=== PATIENT | male | born 1975 | race Caucasian/White ===

== ENCOUNTER 2016-09-30 17:50 | Emergency (ER) | payer OTHER ==
[2016-09-30 18:00] VITALS: TEMP 97.9
[2016-09-30] MEDS ORDERED: ONDANSETRON 4 MG/2 ML VIAL IVP ONE (18:07)
[2016-09-30] MEDS ORDERED: fentaNYL 100 MCG/2 ML INJ IVP ONE (18:07)
[2016-09-30] MEDS ORDERED: NS 1,000 ML IV ONE ×2 (18:07→19:26)
--- NOTE | 2016-09-30 18:14 | EDPHY ---
H & P Time Seen by Provider: 09/30/16 18:01 HPI/ROS: CHIEF COMPLAINT: Right flank pain, vomiting HISTORY OF PRESENT ILLNESS: 40-year-old male presents to the emergency department with abrupt onset of right flank pain that began at 4:00 p.m. today. The patient has a history of kidney stones and he feels that this is very similar with pain in the right flank radiating into the right groin and testicle area. He had a kidney stone 1 year ago and was able to pass this on his own. Prior to that it had been at least 7 or 8 years ago since his last kidney stone. He has never had lithotripsy or required any stenting. He states that he has been nauseous secondary to the pain is vomited twice. No diarrhea. No fevers or chills. He has urinary being normally. He denies dysuria, urgency or frequency. No gross hematuria per patient. REVIEW OF SYSTEMS: Constitutional: No fever, no chills. Eyes: No double or blurry vision. ENT: No sore throat. Respiratory: No cough, no shortness of breath. Cardiac: No chest pain. Gastrointestinal: Abdominal pain as above. Vomiting. No diarrhea. Genitourinary: No dysuria. Musculoskeletal: Right flank pain as above. No neck pain. Skin: No rashes. Neurological: No headache. Past Medical/Surgical History: Kidney stones Social History: Single and lives in [place] Smoking Status: Never smoked Physical Exam: General Appearance: Alert, no distress. 36.6, 123/75 Eyes: Pupils equal and round. Extraocular motions are all intact. ENT: Mouth: Mucous membranes dry appearing. Respiratory: No wheezing, rhonchi, or rales, lungs are clear to auscultation. Cardiovascular: Regular rate and rhythm. Gastrointestinal: Abdomen is soft and nontender, no masses, no rebound or guarding, bowel sounds normal. Positive CVA tenderness on the right, none on the left. Neurological: Alert and oriented x 3, cranial nerves II through XII grossly intact Skin: Warm and dry, no rashes. Musculoskeletal: Nontender to palpate along the cervical, thoracic or lumbar spine. Neck is supple. Extremities: Full range of motion and no peripheral edema. Psychiatric: Patient is oriented X 3, there is no agitation. Constitutional: Initial Vital Signs Temperature (C) 36.6 C 09/30/16 17:51 Heart Rate 77 09/30/16 17:51 Respiratory Rate 18 09/30/16 17:51 Blood Pressure 123/75 H 09/30/16 17:51 O2 Sat (%) 95 09/30/16 17:51 O2 Delivery Mode Room Air Allergies/Adverse Reactions: No Known Allergies Allergy (Unverified 09/30/16 18:00) Home Medications: Medication Instructions Recorded ETODOLAC 09/30/16 Tamsulosin HCl [Flomax] 0.4 mg PO DAILY #10 cap 09/30/16 oxyCODONE/APAP 5/325 [Percocet 1 - 2 tab PO Q4-6PRN PRN #15 tab 09/30/16 5/325] Medical Decision Making - Diagnostics Imaging Results: Imaging Impressions Abdomen/Pelvis Ultrasound 09/30/16 18:09 Impression: 1. Right kidney lower pole 1 cm infundibulum/calyceal calculus with mild right hydronephrosis. 2. No left hydronephrosis or left shadowing calculi. 3. Bladder is empty. Findings and recommendations discussed with emergency department physician insurance account assistant, Berkley Frank PA-C at 1849 hours on September. Final report concurs with initial preliminary interpretation. Renal ultrasound reveals 1 cm distal ureteral calculi. Mild hydronephrosis noted. This was reported to me by Dr. Trent. Imaging: Discussed imaging studies w/ senior software engineering manager Radiologist ED Course/Re-evaluation: 40-year-old male presents to the emergency department with right flank pain. The patient has a history of kidney stones. To avoid radiation exposure, renal ultrasound was ordered which revealed a 1 cm distal right ureteral calculi with mild hydronephrosis. The patient was initially given fentanyl and Zofran. He was then given Toradol 30 mg IV given his normal creatinine of 1.0. Urinalysis reveals large blood without signs of infection The patient continued to have pain and therefore was given 0.5 mg of IV Dilaudid. He received IV normal saline. Patient was given Flomax 0.4 mg p.o.. The patient is comfortable being discharged home. He was given a urine strainer and urology referral. He was instructed to return if he developed difficulty urinating, recurring flank pain, fever, or if he felt worse in any way. Differential Diagnosis: Including but not limited to kidney stone, urinary tract infection, pyelonephritis, urinary retention - Data Points Laboratory Results: Laboratory Results 09/30/16 18:10 09/30/16 18:10 09/30/16 09/30/16 09/30/16 18:10 18:10 18:10 WBC 11.53 10^3/uL H 10^3/uL (3.80-9.50) RBC 5.13 10^6/uL 10^6/uL (4.40-6.38) Hgb 15.3 g/dL g/dL (13.7-17.5) Hct 44.1 % % (40.0-51.0) MCV 86.0 fL fL (81.5-99.8) MCH 29.8 pg pg (27.9-34.1) MCHC 34.7 g/dL g/dL (32.4-36.7) RDW 13.2 % % (11.5-15.2) Plt Count 327 10^3/uL 10^3/uL (150-400) MPV 9.1 fL fL (8.7-11.7) Neut % (Auto) 70.6 % % (39.3-74.2) Lymph % (Auto) 19.8 % % (15.0-45.0) [place] % (Auto) 6.7 % % (4.5-13.0) Eos % (Auto) 1.6 % % (0.6-7.6) Baso % (Auto) 0.9 % % (0.3-1.7) Nucleat RBC Rel Count 0.0 % % (0.0-0.2) Absolute Neuts (auto) 8.14 10^3/uL H 10^3/uL (1.70-6.50) Absolute Lymphs (auto) 2.28 10^3/uL 10^3/uL (1.00-3.00) Absolute Monos (auto) 0.77 10^3/uL 10^3/uL (0.30-0.80) Absolute Eos (auto) 0.19 10^3/uL 10^3/uL (0.03-0.40) Absolute Basos (auto) 0.10 10^3/uL 10^3/uL (0.02-0.10) Absolute Nucleated RBC 0.00 10^3/uL 10^3/uL (0-0.01) Immature Gran % 0.4 % % (0.0-1.1) Immature Gran # 0.05 10^3/uL 10^3/uL (0.00-0.10) Sodium 140 mEq/L mEq/L (134-144) Potassium 4.0 mEq/L mEq/L (3.5-5.2) Chloride 107 mEq/L mEq/L (97-110) Carbon Dioxide 20 mEq/l L mEq/l (22-31) Anion Gap 13 mEq/L mEq/L (8-16) BUN 13 mg/dL mg/dL (7-23) Creatinine 1.0 mg/dL mg/dL (0.7-1.3) Estimated GFR > 60 Glucose 106 mg/dL H mg/dL (70-100) Calcium 9.6 mg/dL mg/dL (8.5-10.4) Urine Color YELLOW Urine Appearance HAZY Urine pH 6.0 (5.0-7.5) Ur Specific [place] 1.023 (1.002-1.030) Urine Protein 1+ H (NEGATIVE) Urine Ketones NEGATIVE (NEGATIVE) Urine Blood 3+ H (NEGATIVE) Urine Nitrate NEGATIVE (NEGATIVE) Urine Bilirubin NEGATIVE (NEGATIVE) Urine Urobilinogen NEGATIVE EU EU (0.2-1.0) Ur Leukocyte Esterase NEGATIVE (NEGATIVE) Urine RBC 50-182 /hpf H /hpf (0-3) Urine WBC 1-3 /hpf /hpf (0-3) Ur Epithelial Cells TRACE /lpf /lpf (NONE-1+) Hyaline Casts 1-5 /lpf /lpf (0-1) Urine Mucus 2+ /lpf H /lpf (NONE-1+) Urine Glucose NEGATIVE (NEGATIVE) Medications Given: Discontinued Medications Fentanyl (Sublimaze) 50 mcg IVP EDNOW ONE Stop: 09/30/16 18:08 Last Admin: 09/30/16 18:33 Dose: 50 mcg Hydromorphone HCl (Dilaudid) 0.5 mg IVP EDNOW ONE Stop: 09/30/16 19:18 Last Admin: 09/30/16 19:18 Dose: 0.5 mg Sodium Chloride (Ns) 1,000 mls @ 0 mls/hr IV ONCE ONE PRN Reason: Wide Open Stop: 09/30/16 18:08 Last Admin: 09/30/16 18:26 Dose: 1,000 mls Sodium Chloride (Ns) 1,000 mls @ 0 mls/hr IV ONCE ONE PRN Reason: Wide Open Stop: 09/30/16 19:27 Last Admin: 09/30/16 19:29 Dose: 1,000 mls Ketorolac Tromethamine (Toradol) 30 mg IVP EDNOW ONE Stop: 09/30/16 18:48 Last Admin: 09/30/16 19:05 Dose: 30 mg Ondansetron HCl (Zofran) 4 mg IVP EDNOW ONE Stop: 09/30/16 18:08 Last Admin: 09/30/16 18:28 Dose: 4 mg Oxycodone/Acetaminophen (Percocet 5/325mg Prepack#4) 1 btl TAKEHOME EDNOW ONE Stop: 09/30/16 20:01 Last Admin: 09/30/16 20:23 Dose: 1 btl Tamsulosin HCl (Flomax) 0.4 mg PO EDNOW ONE Stop: 09/30/16 19:56 Last Admin: 09/30/16 20:00 Dose: 0.4 mg Departure - Departure Disposition: Home, Routine, Self-Care Clinical Impression: Kidney stone Condition: Good Instructions: Oxycodone/Acetaminophen (By mouth), Kidney Stones (ED) Additional Instructions: Strain your urine. Flomax daily until you passed the stone. Percocet for severe pain as directed. Ibuprofen 600 mg every 8 hours as needed for pain. You should not however take any ibuprofen tonight since your given IV Toradol in the emergency department. Return to the emergency department if you develop fever, difficulty urinating, worsening back or abdominal pain, or if you feel worse in any way. Referrals: Ghassan Hutchinson MD [Medical Doctor] - As per Instructions (Urologist on-call) Stand Alone Forms: School Excuse Prescriptions: oxyCODONE/APAP 5/325 [Percocet 5/325] 1 - 2 tab PO Q4-6PRN PRN #15 tab PRN Reason: For Moderate To Severe Pain Tamsulosin HCl [Flomax] 0.4 mg PO DAILY #10 cap
[2016-09-30 18:23] LABS: % IMMATURE GRANULYOCYTES 0.4 % (0.0-1.1); ABSOLUTE IMMATURE GRANULOCYTES 0.05 10^3/uL (0.00-0.10); ADD DIFF? NO; ADD MORPH? NO; ADD SCAN? NO; ATYPICAL LYMPHOCYTE FLAG 0 (0-99); FRAGMENT RBC FLAG 0 (0-99); HEMATOCRIT 44.1 % (40.0-51.0); HEMOGLOBIN 15.3 g/dL (13.7-17.5); LEFT SHIFT FLG 0 (0-99); LIPEMIA HEMOLYSIS FLAG 90 (0-99); MEAN CELL HEMOGLOBIN 29.8 pg (27.9-34.1); MEAN CELL HEMOGLOBIN CONCENTR. 34.7 g/dL (32.4-36.7); MEAN PLATELET VOLUME 9.1 fL (8.7-11.7); PLATELET CLUMPS FLAG 10 (0-99); PLATELET COUNT 327 10^3/uL (150-400); RED BLOOD CELL COUNT 5.13 10^6/uL (4.40-6.38); RED CELL DISTRIBUTION WIDTH 13.2 % (11.5-15.2)
[2016-09-30 18:27] LABS: COLOR YELLOW; LEUKOCYTE ESTERASE,URINE NEGATIVE (NEGATIVE); NITRITE,URINE NEGATIVE (NEGATIVE)
[2016-09-30 18:43] LABS: ANION GAP 13 mEq/L (8-16); CALCIUM 9.6 mg/dL (8.5-10.4); CARBON DIOXIDE 20 mEq/l (22-31); CHLORIDE 107 mEq/L (97-110); GLOMERULAR FILTRATION RATE > 60; GLUCOSE 106 mg/dL (70-100); SODIUM 140 mEq/L (134-144)
[2016-09-30 18:46] LABS: MUCUS 2+ /lpf (NONE-1+); RBC,URINE 50-182 /hpf (0-3)
[2016-09-30] MEDS ORDERED: KETOROLAC 30 MG/1 ML SDV IVP ONE (18:47)
[2016-09-30] MEDS ORDERED: HYDROmorphONE/DILAUDID 1 MG/ML SYR ONE (19:15)
[2016-09-30] MEDS ORDERED: HYDROmorphONE/DILAUDID 1 MG/ML SYR IVP ONE (19:17)
[2016-09-30 19:34] VITALS: RESP 16
[2016-09-30] MEDS ORDERED: TAMSULOSIN HCL 0.4 MG CAP PO ONE ×2 (19:55)
[2016-09-30] MEDS ORDERED: OXYCODONE/APAP 5/325MG PREPACK#4 BTL TAKEHOME ONE (20:00)
[2016-09-30 20:25] VITALS: BP 112/68; PULSE 99; O2SAT 98
== END 2016-09-30 20:24 | disposition home or self-care (01) ==
DX: N20.0 Calculus of kidney (principal)
CPT/HCPCS: 96374; J1170; J1885; J2405; J3010

== ENCOUNTER 2017-09-17 12:13 | Emergency (ER) | payer OTHER ==
[2017-09-17 12:22] VITALS: BP 113/81
--- NOTE | 2017-09-17 12:35 | EDPHY ---
HPI/HX/ROS/PE/MDM Narrative: CHIEF COMPLAINT: "Kidney pain" HPI: The patient is a 41 y/o male with a history of kidney stones complaining of waxing and waning "kidney pain" onset 22:00 last night, about 14.5 hours ago. This is his third episode of similar pain and he was most recently here September 2016 for the same symptoms and diagnosed with a kidney stone by ultrasound. Prior stones have been diagnosed by CT and x-ray as well. When his symptoms began last night he took old Tamsulosin and Lodine. Upon assessment here his pain has significantly improved and he believes he has passed a stone. He had slightly darker urine, but denies gross hematuria, dysuria, or difficulty urinating. No fever. 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 REVIEW OF SYSTEMS: Aside from elements discussed in the HPI, a comprehensive 10-point review of systems was reviewed and is negative. PMH: Kidney stones. SOCIAL HISTORY: Former . Student. at bedside. PHYSICAL EXAM: General:Patient is alert, in no acute distress. ENT:Eyes are normal to inspection. ENT inspection normal. Neck: Normal inspection. Full range of motion. Respiratory:No respiratory distress. Breath sounds normal bilaterally. Cardiovascular: Regular rate and rhythm. Strong peripheral pulses. Normal cap refill. Abdomen:The abdomen is nontender to palpation. There are no peritoneal signs. Back: Normal to inspection. No tenderness to palpation. Skin: Normal color. No rash. Warm and dry. Extremities: Normal appearance. Full range of motion. Neuro: Oriented x3. Normal motor function. Normal sensory function. ED Course: This is a 41 y/o male with a history of kidney stones who presents with a 14.5- hour history of similar symptoms. Upon assessment, his pain has actually dissipated and he believes he recently passed a stone. Previous stones have been diagnosed with CT scans, ultrasounds, and x-rays. Since his symptoms have nearly resolved, he is declining further investigation of his pain apart from an abdominal x-ray and states he is confident it is a stone as it feels the same as prior episodes. Instead he is requesting urology referral and a school note. 60mg IM Toradol administered for pain. Abdominal x-ray: 9x4mm right nephrolithiasis Reassessed patient and discussed findings. His pain remains minimal. Patient will be discharged with standard kidney stone care and follow up instructions. He has prescriptions available at home to manage recurrent pain if needed. Return precautions discussed. He is comfortable with this plan. - Data Points Imaging Results: Imaging Impressions Abdomen X-Ray 09/17/17 12:35 Impression: Right nephrolithiasis. If further characterization is considered indicated, noncontrast CT of the abdomen and pelvis could be obtained. Imaging: Discussed imaging studies w/ call out operator Radiologist Medications Given: Discontinued Medications Ketorolac Tromethamine (Toradol) 60 mg IM EDNOW ONE Stop: 09/17/17 12:37 Last Admin: 09/17/17 12:47 Dose: 60 mg General Time Seen by Provider: 09/17/17 12:23 Initial Vital Signs: Initial Vital Signs Temperature (C) 36.5 C 09/17/17 12:20 Heart Rate 86 09/17/17 12:20 Respiratory Rate 16 09/17/17 12:20 Blood Pressure 113/81 H 09/17/17 12:20 O2 Sat (%) 95 09/17/17 12:20 O2 Delivery Mode Room Air Allergies/Adverse Reactions: No Known Allergies Allergy (Unverified 09/30/16 18:00) Home Medications: Medication Instructions Recorded ETODOLAC 09/30/16 Tamsulosin HCl [Flomax] 0.4 mg PO DAILY #10 cap 09/30/16 Albuterol 09/17/17 Tamsulosin HCl [Flomax] 0.4 mg PO DAILY #10 cap 09/17/17 Departure - Departure Disposition: Home, Routine, Self-Care Clinical Impression: Kidney stone on right side Condition: Good Instructions: Kidney Stones (ED), How to Strain Your Urine (ED) Additional Instructions: 1. Strain urine to try and catch the kidney stone and bring this to the urology appointment. 2. Use Flomax as prescribed for kidney stone. 3. You can take 800mg ibuprofen every 8 hours as needed for pain if not using other NSAIDs. You received a similar medication here, so do not take a dose of ibuprofen until later tonight. 4. Followup with your urologist within one week. You've been referred to Dr. Concepcion. 5. Return to the emergency apartment for fever, severe pain, inability to urinate or other concerns. Referrals: ARUNA Hollingsworth,. [Primary Care Provider] - As per Instructions Everardo Concepcion MD [Medical Doctor] - As per Instructions Stand Alone Forms: School Excuse Prescriptions: Tamsulosin HCl [Flomax] 0.4 mg PO DAILY #10 cap Report Scribed for: Julio C Salinas Report Scribed by: Elizabeth Benites Date of Report: 09/17/17 Time of Report: 12:29 Physician Review and Approval Statement: Portions of this note were transcribed by an ED scribe. I personally performed the history, physical exam, and medical decision making; and confirm the accuracy of the information in the transcribed note.
[2017-09-17] MEDS ORDERED: KETOROLAC 30 MG/1 ML SDV IM ONE (12:36)
== END 2017-09-17 14:17 | disposition home or self-care (01) ==
DX: N20.0 Calculus of kidney (principal)
CPT/HCPCS: J1885

== ENCOUNTER 2018-01-31 21:41 | Emergency (ER) | payer OTHER ==
[2018-01-31] MEDS ORDERED: NS 1,000 ML IV ONE (21:53)
[2018-01-31] MEDS ORDERED: LIDOCAINE 1% 100 MG in NS 100 ML IV ONE (21:53)
--- NOTE | 2018-01-31 22:05 | EDPHY ---
H & P Stated Complaint: Dark urine, flank pain, "testicle pain", hx kidney stones Time Seen by Provider: 01/31/18 21:48 HPI/ROS: CHIEF COMPLAINT: "I think I have a kidney stone" HISTORY OF PRESENT ILLNESS: 42-year-old male history of recurrent nephrolithiasis arrives via private vehicle complaining of right flank pain radiating to his right lower quadrant since this morning. He notes similar pain a few days ago which resolved spontaneously. States current symptoms feel like a kidney stone. Positive nausea. No vomiting. No fever or chills. No trauma. No dysuria hematuria increased frequency. REVIEW OF SYSTEMS: 10 systems reviewed and negative with the exception of the elements mentioned in the history of present illness PAST MEDICAL & SURGICAL HISTORY: recurrent nephrolithiasis SOCIAL HISTORY: Nonsmoker PHYSICAL EXAM (Prior to examination, patient consented to physical exam, hands were washed and my usual and customary physical exam procedures followed) 1) GENERAL: Well-developed, well-nourished, alert and oriented. Appears uncomfortable. 2) HEAD: Normocephalic, atraumatic 3) HEENT: Pupils equal, round, reactive to light bilaterally. Sclera anicteric. Nasopharynx, oropharynx, clear, no lesions. Dry mucous membranes. 4) NECK: Full range of motion, no meningeal signs. 5) LUNGS: Clear auscultation bilaterally, no wheezes, no rhonchi, no retractions. 6) HEART: Regular rate and rhythm, no murmur, no heave, no gallop. 7) ABDOMEN: No guarding, no rebound, no focal tenderness, negative McBurney's, negative Tapia's, negative Rovsing's, negative peritoneal sign, 8) MUSCULOSKELETAL: Moving all extremities, no focal areas of tenderness, no obvious trauma. No peripheral edema or discoloration. 9) BACK: No CVA tenderness, no midline vertebral tenderness, no fluctuance, no step-off, no obvious trauma, no visual or palpable abnormality. 10) SKIN: No rash, no petechiae. 11) : Normal male external genitalia bilateral testicles nontender, no high- riding testicle, no deformity, bilateral cremasteric reflex present and brisk.. DIFFERENTIAL DIAGNOSIS: In no particular order including but not limited to nephrolithiasis, ureterolithiasis, pyelonephritis, testicular torsion, acute appendicitis - Personal History Current Tetanus Diphtheria and Acellular Pertussis (TDAP): No - Medical/Surgical History Hx Asthma: Yes Hx Chronic Respiratory Disease: No Hx Diabetes: No Hx Cardiac Disease: No Hx Renal Disease: No Hx Cirrhosis: No Hx Alcoholism: No Hx HIV/AIDS: No Hx Splenectomy or Spleen Trauma: No Other PMH: pmh: KIDNEY STONES, LOW BACK PAIN,. PSH: NONE - Social History Smoking Status: Never smoked Constitutional: Initial Vital Signs Temperature (C) 36.8 C 01/31/18 21:45 Heart Rate 100 01/31/18 21:45 Respiratory Rate 18 01/31/18 21:45 Blood Pressure 136/72 H 01/31/18 21:45 O2 Sat (%) 97 01/31/18 21:45 O2 Delivery Mode Room Air Allergies/Adverse Reactions: No Known Allergies Allergy (Unverified 01/31/18 21:45) Home Medications: Medication Instructions Recorded ETODOLAC 09/30/16 Tamsulosin HCl [Flomax] 0.4 mg PO DAILY #10 cap 09/30/16 Albuterol 09/17/17 Tamsulosin HCl [Flomax] 0.4 mg PO DAILY #10 cap 09/17/17 Tamsulosin HCl [Flomax] 0.4 mg PO DAILY #7 cap 01/31/18 Medical Decision Making - Diagnostics Imaging Results: Imaging Impressions Abdomen/Pelvis CT 01/31/18 22:17 Impression: 1. 5 x 3 mm distal right ureteral calculus with associated mild right hydronephrosis. 2. Bilateral nephrolithiasis more extensive on the right side. 3. See above report for additional findings. Results called and discussed with Brennan QUICK on 01/31/2018 at 23:09. Images reviewed myself ED Course/Re-evaluation: 10:04 p.m. I reviewed the patient's old medical records. He has had multiple CTs in the past. We discussed the dangers of cumulative radiation exposure. Patient requests repeat CT scanning this evening. I believe him to have decision-making capacity. I saw this patient independently based on established practice protocols. Care of patient under supervision of secondary supervising physician Dr Bruno with whom I discussed case. 11:36 p.m.: Re-evaluation, urinalysis is negative for pyuria bacteriuria. Discussed his imaging results showing stone at the right UVJ. He is asymptomatic at this time, pain is controlled. He feels comfortable being discharged. He has never followed up with a urologist. Recommended and given Urology follow-up information. Discharged with Flomax states that this has helped him in the past. Doubt testicular pathology such as testicular torsion in the absence of abnormal objective testicular findings. He feels comfortable being discharged. My usual and customary urologic precautions and instructions provided. - Data Points Laboratory Results: Laboratory Results 01/31/18 22:00 01/31/18 22:00 01/31/18 01/31/18 01/31/18 23:00 22:00 22:00 WBC RBC Hgb Hct MCV MCH MCHC RDW Plt Count MPV Neut % (Auto) Lymph % (Auto) [place] % (Auto) Eos % (Auto) Baso % (Auto) Nucleat RBC Rel Count Absolute Neuts (auto) Absolute Lymphs (auto) Absolute Monos (auto) Absolute Eos (auto) Absolute Basos (auto) Absolute Nucleated RBC Immature Gran % Immature Gran # Sodium 136 mEq/L mEq/L (135-145) Potassium 3.8 mEq/L mEq/L (3.3-5.0) Chloride 105 mEq/L mEq/L (97-110) Carbon Dioxide 22 mEq/l mEq/l (22-31) Anion Gap 9 mEq/L mEq/L (8-16) BUN 19 mg/dL mg/dL (7-23) Creatinine 1.0 mg/dL mg/dL (0.7-1.3) Estimated GFR > 60 Glucose 121 mg/dL H mg/dL (70-100) Calcium 9.5 mg/dL mg/dL (8.5-10.4) Total Bilirubin 1.1 mg/dL mg/dL (0.1-1.4) Conjugated Bilirubin 0.1 mg/dL mg/dL (0.0-0.5) Unconjugated Bilirubin 1.0 mg/dL mg/dL (0.0-1.1) AST 23 IU/L IU/L (17-59) ALT 33 IU/L IU/L (21-72) Alkaline Phosphatase 64 IU/L IU/L (38-126) Total Protein 6.8 g/dL g/dL (6.3-8.2) Albumin 4.3 g/dL g/dL (3.5-5.0) Lipase 89 IU/L IU/L (23-300) Urine Color YELLOW Urine Appearance CLEAR Urine pH 6.0 (5.0-7.5) Ur Specific [place] 1.006 (1.002-1.030) Urine Protein NEGATIVE (NEGATIVE) Urine Ketones NEGATIVE (NEGATIVE) Urine Blood 3+ H (NEGATIVE) Urine Nitrate NEGATIVE (NEGATIVE) Urine Bilirubin NEGATIVE (NEGATIVE) Urine Urobilinogen NEGATIVE EU EU (0.2-1.0) Ur Leukocyte Esterase NEGATIVE (NEGATIVE) Urine RBC Pending Urine WBC Pending Ur Epithelial Cells Pending Urine Glucose NEGATIVE (NEGATIVE) 01/31/18 22:00 WBC 13.54 10^3/uL H 10^3/uL (3.80-9.50) RBC 4.50 10^6/uL 10^6/uL (4.40-6.38) Hgb 13.5 g/dL L g/dL (13.7-17.5) Hct 38.9 % L % (40.0-51.0) MCV 86.4 fL fL (81.5-99.8) MCH 30.0 pg pg (27.9-34.1) MCHC 34.7 g/dL g/dL (32.4-36.7) RDW 12.9 % % (11.5-15.2) Plt Count 294 10^3/uL 10^3/uL (150-400) MPV 8.7 fL fL (8.7-11.7) Neut % (Auto) 86.1 % H % (39.3-74.2) Lymph % (Auto) 8.3 % L % (15.0-45.0) [place] % (Auto) 4.5 % % (4.5-13.0) Eos % (Auto) 0.3 % L % (0.6-7.6) Baso % (Auto) 0.4 % % (0.3-1.7) Nucleat RBC Rel Count 0.0 % % (0.0-0.2) Absolute Neuts (auto) 11.65 10^3/uL H 10^3/uL (1.70-6.50) Absolute Lymphs (auto) 1.13 10^3/uL 10^3/uL (1.00-3.00) Absolute Monos (auto) 0.61 10^3/uL 10^3/uL (0.30-0.80) Absolute Eos (auto) 0.04 10^3/uL 10^3/uL (0.03-0.40) Absolute Basos (auto) 0.06 10^3/uL 10^3/uL (0.02-0.10) Absolute Nucleated RBC 0.00 10^3/uL 10^3/uL (0-0.01) Immature Gran % 0.4 % % (0.0-1.1) Immature Gran # 0.05 10^3/uL 10^3/uL (0.00-0.10) Sodium Potassium Chloride Carbon Dioxide Anion Gap BUN Creatinine Estimated GFR Glucose Calcium Total Bilirubin Conjugated Bilirubin Unconjugated Bilirubin AST ALT Alkaline Phosphatase Total Protein Albumin Lipase Urine Color Urine Appearance Urine pH Ur Specific [place] Urine Protein Urine Ketones Urine Blood Urine Nitrate Urine Bilirubin Urine Urobilinogen Ur Leukocyte Esterase Urine RBC Urine WBC Ur Epithelial Cells Urine Glucose Medications Given: Discontinued Medications Lidocaine HCl 100 mg/ Sodium (Chloride) 110 mls @ 600 mls/hr IV EDNOW ONE Stop: 01/31/18 22:03 Last Admin: 01/31/18 22:36 Dose: 110 mls Sodium Chloride (Ns) 1,000 mls @ 3,000 mls/hr IV EDNOW ONE Stop: 01/31/18 22:12 Last Admin: 01/31/18 22:05 Dose: 1,000 mls Departure - Departure Disposition: Home, Routine, Self-Care Clinical Impression: Nephrolithiasis, Ureterolithiasis Condition: Good Instructions: Kidney Stones (ED) Additional Instructions: Seek immediate medical attention if you develop new or worsening symptoms, if you develop fevers, chills, inability to tolerate oral intake or any other symptoms that concerns you. Referrals: Kendell Zayas MD [Medical Doctor] - As per Instructions Prescriptions: Tamsulosin HCl [Flomax] 0.4 mg PO DAILY #7 cap
[2018-01-31 22:07] LABS: PLATELET COUNT 294 10^3/uL (150-400)
[2018-01-31 23:56] VITALS: BP 175/57
== END 2018-01-31 23:56 | disposition home or self-care (01) ==
DX: N20.2 Calculus of kidney with calculus of ureter (principal); N13.30 Unspecified hydronephrosis